=== PATIENT | male | born 1995 | race Caucasian/White ===

== ENCOUNTER 2017-01-27 14:37 | Emergency (ER) | payer OTHER, MEDICAID ==
[2017-01-27 14:45] VITALS: BP 133/87; PULSE 95; RESP 16; TEMP 97.3; O2SAT 93
--- NOTE | 2017-01-27 15:23 | EDPHY ---
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 mild pain in left thumb, patient states his last tetanus was a sophomore year of high school Review of systems As per HPI General no fever no chills no weakness HEENT no eye pain no eye discharge. No eye redness, no sore throat Respiratory no cough, no shortness of breath Cardiac no chest pain, no peripheral edema GI no abdominal pain, no diarrhea, no constipation, no nausea, no vomiting no flank pain, no hematuria, no dysuria Musculoskeletal no myalgias, no joint pain Heme no easy bruising, no easy bleeding Endo no polyuria, no polydipsia Skin no rashes, no pruritus Neuro no syncope, no dizziness, no headaches Psych is no suicidal ideation, no homicidal ideation Past Medical/Surgical History: noncontributory Social History: works at [employer] Smoking Status: Current every day smoker Physical Exam: Alert and oriented in no acute distress nontoxic appearance, afebrile Atraumatic normocephalic Neck no JVD Lungs clear to auscultation, no respiratory distress Heart regular rate and rhythm Extremities no cyanosis clubbing edema Left thumb -full range of motion good capillary refill, mild finger tip avulsion at distal lateral aspect of thumb and nail no involvement of finger pad Constitutional: Initial Vital Signs Temperature (C) 36.3 C 01/27/17 14:38 Heart Rate 95 01/27/17 14:38 Respiratory Rate 16 01/27/17 14:38 Blood Pressure 133/87 H 01/27/17 14:38 O2 Sat (%) 93 01/27/17 14:38 O2 Delivery Mode Room Air Allergies/Adverse Reactions: No Known Allergies Allergy (Verified 01/27/17 14:45) Home Medications: Medication Instructions Recorded NK [No Known Home Meds] 01/27/17 Medical Decision Making ED Course/Re-evaluation: patient seen and evaluated for distal lateral left thumb finger tip avulsion with no finger pad involvement, bleeding controlled wound cleansed and dressed patient advised follow-up with [facility] Departure - Departure Disposition: Home, Routine, Self-Care Clinical Impression: Fingertip avulsion Condition: Good Instructions: Skin Avulsion (ED) Additional Instructions: Keep area covered while working. Follow up occupational health. Referrals: NONE *PRIMARY CARE P,. [Primary Care Provider] - As per Instructions Stand Alone Forms: Work Comp Follow Up
== END 2017-01-27 15:30 | disposition home or self-care (01) ==
LOC: CED 14:37
DX: S61.002A Unspecified open wound of left thumb without damage to nail, initial encounter (principal); F17.200 Nicotine dependence, unspecified, uncomplicated; W45.8XXA Other foreign body or object entering through skin, initial encounter; Y92.89 Other specified places as the place of occurrence of the external cause; Y99.0 Civilian activity done for income or pay; Y93.G1 Activity, food preparation and clean up